=== PATIENT | male | born 1975 | race African-American/Black ===

== ENCOUNTER 2016-09-04 09:55 | Outpatient (CLI) | payer MEDICARE, OTHER ==
[2016-09-04 10:29] LABS: BASOPHILS % 0.1 (0.0-1.5); EOSINOPHILS % 4.1 % (0.0-6.8); LYMPHOCYTES # 1.4 # k/uL (0.6-4.0); MEAN CORPUSCULAR HEMOGLOBIN 29.9 pg (28.0-34.0); MONOCYTES # 0.4 # k/uL (0.0-0.9); MONOCYTES % 6.2 % (0.0-11.0); NEUTROPHILS # 4.1 # k/uL (1.4-7.7)
[2016-09-04 10:56] LABS: eGFR (African) > 60; eGFR (Non-African) > 60
[2016-09-04 15:36] LABS: VALPROIC ACID LEVEL 118.6 ug/mL (50.0-100.0)
== END 2016-09-04 09:56 ==
LOC: LAB 09:55
PROVIDERS: ATTEND Family Medicine
DX: Z51.81 Encounter for therapeutic drug level monitoring (principal); Z79.899 Other long term (current) drug therapy
CPT/HCPCS: 36415; 80053; 80164; 80178; 85025

== ENCOUNTER 2016-09-19 09:22 | Outpatient (CLI) | payer MEDICARE, OTHER ==
[2016-09-19 15:58] LABS: VALPROIC ACID LEVEL 77.5 ug/mL (50.0-100.0)
== END 2016-09-19 09:23 ==
LOC: LAB 09:22
PROVIDERS: ATTEND Nurse Practitioner Psychiatric/Mental Health
DX: Z51.81 Encounter for therapeutic drug level monitoring (principal); Z79.899 Other long term (current) drug therapy
CPT/HCPCS: 36415; 80164; 80178

== ENCOUNTER 2016-12-18 09:15 | Outpatient (CLI) | payer MEDICARE, OTHER ==
[2016-12-18 10:09] LABS: eGFR (African) > 60; eGFR (Non-African) > 60
== END 2016-12-18 09:16 ==
LOC: LAB 09:15
PROVIDERS: ATTEND Family Medicine
DX: Z51.81 Encounter for therapeutic drug level monitoring (principal); E11.9 Type 2 diabetes mellitus without complications
CPT/HCPCS: 36415; 80048; 83036

== ENCOUNTER 2017-01-24 09:46 | Outpatient (CLI) | payer MEDICARE, OTHER ==
[2017-01-24 10:18] LABS: BASOPHILS % 0.1 (0.0-1.5); EOSINOPHILS % 4.9 % (0.0-6.8); MEAN CORPUSCULAR HEMOGLOBIN 30.3 pg (28.0-34.0); MEAN CORPUSCULAR VOLUME 94.6 fl (80.0-100.0); MONOCYTES % 6.1 % (0.0-11.0); NEUTROPHILS # 5.1 # k/uL (1.4-7.7)
[2017-01-24 10:36] LABS: eGFR (African) > 60; eGFR (Non-African) > 60
== END 2017-01-24 09:47 ==
LOC: LAB 09:46
PROVIDERS: ATTEND Nurse Practitioner Psychiatric/Mental Health
DX: Z51.81 Encounter for therapeutic drug level monitoring (principal)
CPT/HCPCS: 36415; 80053; 85025

== ENCOUNTER 2017-02-28 09:35 | Outpatient (CLI) | payer MEDICARE, OTHER ==
[2017-03-02 18:28] LABS: VALPROIC ACID LEVEL 81.8 ug/mL (50.0-100.0)
== END 2017-02-28 09:36 ==
LOC: LAB 09:35
PROVIDERS: ATTEND Nurse Practitioner Psychiatric/Mental Health
DX: Z51.81 Encounter for therapeutic drug level monitoring (principal)
CPT/HCPCS: 36415; 80164; 80178

== ENCOUNTER 2017-08-29 09:15 | Outpatient (CLI) | payer MEDICARE, OTHER | END 2017-08-29 09:16 | LOC: LAB 09:15 | PROVIDERS: ATTEND Nurse Practitioner Psychiatric/Mental Health | DX: Z53.9 Procedure and treatment not carried out, unspecified reason (principal) ==

== ENCOUNTER → 2017-09-12 | Outpatient (CLI) | payer MEDICARE, OTHER ==
[2017-09-12 09:38] LABS: BASOPHILS % 0.4 (0.0-1.5); EOSINOPHILS % 4.6 % (0.0-6.8); MEAN CORPUSCULAR HEMOGLOBIN 30.5 pg (28.0-34.0); MEAN CORPUSCULAR VOLUME 97.1 fl (80.0-100.0); MONOCYTES % 5.8 % (0.0-11.0); NEUTROPHILS # 4.4 # k/uL (1.4-7.7)
[2017-09-12 10:14] LABS: eGFR (African) > 60; eGFR (Non-African) > 60
[2017-09-12 16:31] LABS: VALPROIC ACID LEVEL 94.6 ug/mL (50.0-100.0)
== END ==
LOC: LAB 09:11
PROVIDERS: ATTEND Nurse Practitioner Psychiatric/Mental Health
DX: Z51.81 Encounter for therapeutic drug level monitoring (principal); Z79.899 Other long term (current) drug therapy
CPT/HCPCS: 36415; 80053; 80164; 80178; 83036; 85025

== ENCOUNTER 2018-02-27 09:55 | Outpatient (CLI) | payer MEDICARE, OTHER ==
[2018-02-27 11:09] LABS: eGFR (African) > 60; eGFR (Non-African) > 60
[2018-02-27 19:12] LABS: VALPROIC ACID LEVEL 76.7 ug/mL (50.0-100.0)
== END 2018-02-27 10:00 ==
LOC: LAB 09:55
PROVIDERS: ATTEND Family Medicine
DX: Z51.81 Encounter for therapeutic drug level monitoring (principal); Z79.899 Other long term (current) drug therapy
CPT/HCPCS: 36415; 80053; 80164; 80178; 83036

== ENCOUNTER 2018-10-26 08:13 | Outpatient (CLI) | payer MEDICARE, OTHER ==
[2018-10-26 08:45] LABS: BASOPHILS % 0.4 (0.0-1.5); EOSINOPHILS % 4.9 % (0.0-6.8); MEAN CORPUSCULAR HEMOGLOBIN 29.9 pg (28.0-34.0); NEUTROPHILS # 4.5 # k/uL (1.4-7.7)
[2018-10-26 09:54] LABS: eGFR (Non-African) > 60
== END 2018-10-26 08:15 ==
LOC: LAB 08:13
PROVIDERS: ATTEND Family Medicine
DX: Z51.81 Encounter for therapeutic drug level monitoring (principal); Z79.899 Other long term (current) drug therapy
CPT/HCPCS: 36415; 80053; 80061; 80164; 80178; 83036; 85025

== ENCOUNTER 2019-05-07 08:22 | Outpatient (CLI) | payer OTHER ==
[2019-05-07 09:05] LABS: BASOPHILS % 0.6 % (0.0-1.5); NEUTROPHILS # 4.6 # k/uL (1.4-7.7)
[2019-05-07 09:22] LABS: eGFR (Non-African) > 60
== END 2019-05-07 08:24 ==
LOC: LAB 08:22
PROVIDERS: ATTEND Family Medicine
DX: Z51.81 Encounter for therapeutic drug level monitoring (principal); Z79.899 Other long term (current) drug therapy
CPT/HCPCS: 36415; 80053; 80164; 80178; 85025